=== PATIENT | female | born 1955 | race Caucasian/White ===

== ENCOUNTER → 2016-12-06 | Outpatient (CLI) | payer OTHER | LOC: RAD 14:26 | DX: M47.894 Other spondylosis, thoracic region (principal); R06.02 Shortness of breath; R05 Cough ==

== ENCOUNTER → 2018-06-23 | Outpatient (CLI) | payer OTHER | LOC: ULTRA 10:51 | DX: R10.11 Right upper quadrant pain (principal) ==